=== PATIENT | female | born 1990 | race Caucasian/White ===

== ENCOUNTER 2017-03-15 18:40 | Emergency (ER) | payer BC ==
[~2017-03-15] VITALS: Ht 175.3 cm; Wt 59.0 kg
--- NOTE | 2017-03-15 18:42 | NUR ---
PT LEVON FROM HOME. HERE FOR POSSIBLE OD TO XANAX. PER REPORT PT WAS FOUND AT HOME W/ HALF A BOTTLE OF WINE AND XANAX PILLS ON THE FLOOR. STATING SHE WANTS TO KILL HERSELF. ON MONITOR.STABLE VITALS. AWAITING MD SIERRA.
--- NOTE | 2017-03-15 18:48 | NUR ---
IV LINE STARTED BLOOD DRAWN AND SENT TO LAB.
[2017-03-15 19:02] LABS: BASOPHILS % (AUTO) 0.8 % (0.0-2.0); EOSINOPHILS # (AUTO) 0.1 /CMM (0.0-0.7); EOSINOPHILS % (AUTO) 3.4 % (0.0-6.0); HEMATOCRIT 40 % (33-45); HEMOGLOBIN 13.2 g/dL (11.5-14.8); LYMPHOCYTES # (AUTO) 1.7 /CMM (0.8-4.8); LYMPHOCYTES % (AUTO) 40.6 % (20.0-44.0); MEAN CORPUSCULAR HEMOGLOBIN 29 PG (26.0-33.0); MEAN CORPUSCULAR HGB CONC 33 g/dl (31.0-36.0); MEAN CORPUSCULAR VOLUME 87 fL (82-100); MONOCYTES # (AUTO) 0.4 /CMM (0.1-1.30); MONOCYTES % (AUTO) 8.8 % (2.0-12.0); NEUTROPHILS # (AUTO) 2.1 /CMM (1.8-8.9); NEUTROPHILS % (AUTO) 46.4 % (43.0-81.0); PLATELET COUNT (AUTO) 281 /CMM (150-450); RDW COEFFICIENT OF VARIATION 13.4 (11.5-15.0); RED BLOOD CELL COUNT(AUTO) 4.57 MIL/uL (4.0-5.2); WHITE BLOOD COUNT (AUTO) 4.3 K/uL (4.3-11.0)
[2017-03-15 19:14] LABS: CALCIUM, SERUM 9.3 mg/dL (8.5-10.1); CREATININE 1.1 mg/dL (0.6-1.3); POTASSIUM 3.8 mmol/L (3.5-5.1)
[2017-03-15 19:20] LABS: ALBUMIN 4.1 g/dL (3.4-5.0); BILIRUBIN,DIRECT 0.1 mg/dL (0.0-0.2); BILIRUBIN,TOTAL 0.4 mg/dL (0.2-1.0); TOTAL PROTEIN, SERUM 7.6 g/dL (6.4-8.2)
[2017-03-15 19:21] LABS: SALICYLATE 2.4 mg/dL (2.8-20.0)
[2017-03-15] MEDS ORDERED: IV NS 0.9% 1,000 ML ONE (19:45)
[2017-03-15] MEDS ORDERED: IV SET PRIMARY 1 EA INFUS.SET MC ONE (19:45)
--- NOTE | 2017-03-15 19:45 | NUR ---
SPOKE TO POISON CONTROL. RECOMENDS SUPPORTIVE CARE ONLY. MONITOR FOR RESPIRATORY DEPRESSION. AND BLOOD LEVEL DRAW. ERMD AWARE.
[2017-03-15 19:57] LABS: APPEARANCE,URINE Clear (CLEAR); BILIRUBIN,URINE Negative (NEGATIVE); BLOOD, URINE Small Ery/uL (NEGATIVE); COLOR,URINE Yellow (YELLOW); KETONES,URINE Negative (NEGATIVE); LEUKOCYTE ESTERASE ,URINE Trace (NEGATIVE); NITRITE, URINE Negative (NEGATIVE); PH,URINE 7.5 (5.0-8.0); PROTEIN,URINE Negative (NEGATIVE); UGLUCOSE Negative (NEGATIVE); UROBILINOGEN,URINE 0.2 EU/dL (0.2)
[2017-03-15] MEDS ORDERED: IV NS 0.9% 1,000 ML BAG IV ONE (20:00)
[2017-03-15 20:03] LABS: BACTERIA,URINE Few /HPF (None Seen); RBC,URINE 0-2 /HPF (0-2); SQUAMOUS EPITHELIAL CELL,UR Moderate /HPF (None Seen); WBC,URINE 0-2 /HPF (0-3)
--- NOTE | 2017-03-15 23:16 | NUR ---
REPORT TO CHARGE NURSE SIN FOR [facility]FRED.
--- NOTE | 2017-03-16 00:25 | NUR ---
AAO X4. STILL SLURRED. S/O AT BEDSIDE. DENIES SI AT THIS TIME. RESP EVEN AND UNLABORED. ON MONITOR. CARE PLAN REDISCUSSED.
--- NOTE | 2017-03-16 01:46 | NUR ---
REMAINS RESTING WITH NO S/S OF DISTRESS. RESP EVEN AND UNLABORED.
--- NOTE | 2017-03-16 02:40 | NUR ---
NO NEW CHANGES FROM PREVIOUS ASSESSMENT. RESP EVEN AND UNLABORED.
--- NOTE | 2017-03-16 03:25 | NUR ---
RESTING IN BED WITH S/O.
--- NOTE | 2017-03-16 04:23 | NUR ---
AAO X4. DENIES SI/HI OR ANY SX'S AT THIS TIME.
--- NOTE | 2017-03-16 04:28 | NUR ---
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
--- NOTE | 2017-03-16 05:12 | NUR ---
AMBULATORY WITH STEADY GAIT TO RESTROOM WITH NO C/. STILL AWAITS PSYCH EVAL.
--- NOTE | 2017-03-16 06:25 | NUR ---
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
--- NOTE | 2017-03-16 07:30 | NUR ---
Patient discharged to home in stable condition. Written and verbal after care instructions given. Patient verbalizes understanding of instruction.
[2017-03-16 07:44] VITALS: BP 116/68
== END 2017-03-16 07:44 | disposition home or self-care (01) ==
LOC: ER 18:43
DX: T42.4X2A Poisoning by benzodiazepines, intentional self-harm, initial encounter (principal); F42.9 Obsessive-compulsive disorder, unspecified; F43.10 Post-traumatic stress disorder, unspecified; F10.20 Alcohol dependence, uncomplicated; Y92.89 Other specified places as the place of occurrence of the external cause
CPT/HCPCS: 36415; 80048-TC; 80076-TC; 80305; 81000-TC; 84703-TC; 85025-TC; A4606; G0480; J7030; Z7610